=== PATIENT | male | born 1990 | race African-American/Black ===

== ENCOUNTER 2020-10-28 22:07 | Emergency (ER) | payer MEDICAID ==
[~2020-10-28] VITALS: Ht 177.8 cm; Wt 79.0 kg
[2020-10-29] MEDS ORDERED: KETOROLAC 30MG/ML VIAL IM ONE
[2020-10-29 01:33] VITALS: BP 136/82
== END 2020-10-29 02:13 | disposition left against medical advice (07) ==
LOC: ER 22:07
DX: S40.011A Contusion of right shoulder, initial encounter (principal); S60.211A Contusion of right wrist, initial encounter; Z87.828 Personal history of other (healed) physical injury and trauma; V43.62XA Car passenger injured in collision with other type car in traffic accident, initial encounter; W22.12XA Striking against or struck by front passenger side automobile airbag, initial encounter; Y93.89 Activity, other specified; Y92.488 Other paved roadways as the place of occurrence of the external cause
CPT/HCPCS: 70450; 73030; 73110; 93005; 96372; 99285; J1885